=== PATIENT | male | born 1985 | race Caucasian/White ===

== ENCOUNTER → 2018-12-14 13:52 | Outpatient (CLI) | payer BC, SELFPAY ==
[2018-12-14 15:45] LABS: AST(SGOT) 30 U/L (15-37); Alanine Aminotransfer ALT/SGPT 58 U/L (16-61)
[2018-12-14 15:48] LABS: Absolute Lymphocyte Count 1.76 X10^3/ul (0.83-4.51); Absolute Neutrophil Count 3.7 X10^3/uL (2.0-7.7); Basophil# 0.01 X10^3/uL; Basophil% 0.2 % (0-1); Eosinophil# 0.14 X10^3/uL; Eosinophils% 2.3 % (0-5); Hematocrit 44.8 % (40-54); Hemoglobin 15.5 g/dl (13.0-16.5); Lymphocyte # 1.76 X10^3/ul (4.0); Lymphocyte % 28.5 % (19-41); Mean Corp Hgb Conc 34.6 g/gl (32-36); Mean Corpuscular Hgb 30.9 pg (27.0-32.0); Mean Corpuscular Volume 89.4 fL (80-94); Mean Platelet Vol. 9.9 fl (6.2-12.0); Monocyte# 0.55 X10^3/uL; Monocyte% 8.9 % (0-10); Neutrophil # 3.69 X10^3/uL (2.7-7.7); Neutrophil % 59.8 % (47-70); POSITIVE COUNT NO; POSITIVE DIFFERENTIAL NO; POSITIVE MORPHOLOGY NO; Platelet Count 230 K/mm3 (150-450); RBC Distribution Width CV 12.2 % (11.6-14.6); RBC Distribution Width SD 39.1 fl (35.1-43.9); Red Blood Count 5.01 M/mm3 (4.6-6.2); White Blood Count 6.2 K/mm3 (4.4-11.0)
== END ==
PROVIDERS: Family Provider Family Medicine; PCP Family Medicine; Referring Provider Dermatology; Visit Provider Dermatology
DX: L40.0 Psoriasis vulgaris (principal); L40.8 Other psoriasis; D23.61 Other benign neoplasm of skin of right upper limb, including shoulder; B35.1 Tinea unguium; B35.3 Tinea pedis; Z71.89 Other specified counseling
CPT/HCPCS: 36415; 84450; 84460; 85025